=== PATIENT | female | born 1985 | race Two or more races ===

== ENCOUNTER 2019-10-10 19:13 | Inpatient (IN) | payer BC ==
[2019-10-10] MEDS ORDERED: Sodium Chloride 0.9% 10 ML Syringe FLUSH PRN (19:45)
[2019-10-10] MEDS ORDERED: Misoprostol 100 MCG Tab VAG PRN (19:45)
[2019-10-10] MEDS ORDERED: Oxytocin/Lactated Ringers 10 UNIT/1,000 ML BAG IV SCH ×2 (19:45)
[2019-10-10] MEDS ORDERED: Ondansetron 4 MG/2 ML SDV IVPUSH PRN (19:45)
[2019-10-10] MEDS ORDERED: Nalbuphine 10 MG/ML Syringe IVPUSH PRN (19:45)
--- NOTE | 2019-10-10 19:50 | PCM.LDHP ---
L&D History of Present Illness - General Date of Service: 10/10/19 Admit Problem/Dx: Patient Status Order with Admit Dx/Problem 10/10/19 19:46 Patient Status [ADT] Routine Admission Diagnosis/Problem Admission Diagnosis/Problem Gestational hypertension Source of Information: Patient History Limitations: Reports: No Limitations - History of Present Illness Introduction:: Patient is a 33 y/o at 37 0/7 wks who presents for IOL for gestational HTN. Doing well today. No new symptoms. Good FM. 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: : 2 Para: 1 LMP (Approximate): Social & Family History - Tobacco Use Smoking Status *Q: Never Smoker - Alcohol Use Alcohol Use History: No - Recreational Drug Use Recreational Drug Use: No H&P Review of Systems - Review of Systems: Review Of Systems: See Below General: Reports: No Symptoms Pulmonary: Reports: No Symptoms Cardiovascular: Reports: No Symptoms Gastrointestinal: Reports: No Symptoms Genitourinary: Reports: No Symptoms Musculoskeletal: Reports: No Symptoms Psychiatric: Reports: No Symptoms Neurological: Reports: No Symptoms L&D Exam - Exam Exam: See Below - OB Specific Contraction Intensity: Irritability Movement: Active Heart Tones: Present Heart Tones per Min: 140 Heart Rate (FHR) Variability: Moderate (6-25 bmp) Presentation: Vertex - Wills Score Wills Score Cervix Position: Posterior Wills Score Consistency: Medium Wills Score Effacement: 31-50% Wills Score Dilation: 1-2 cm Wills Score Infant's Station: -3 Wills Score Total: 3 - Exam General: Alert, Oriented, Cooperative Lungs: Clear to Auscultation, Normal Respiratory Effort Cardiovascular: Regular Rate, Regular Rhythm GI/Abdominal Exam: Soft, Non-Tender Genitourinary: Normal external exam Extremities: Normal Inspection Skin: Warm, Dry, Intact - Patient Data Result Diagrams: 10/10/19 20:50 10/10/19 20:50 - Problem List (1) 37 weeks gestation of SNOMED Code(s): 21250780 ICD Code: Z3A.37 - 37 WEEKS GESTATION OF Status: Acute Current Visit: Yes (2) Gestational hypertension SNOMED Code(s): 400857830 ICD Code: O13.9 - GESTATIONAL HTN W/O SIGNIFICANT PROTEINURIA, UNSP TRIMESTER Status: Acute Current Visit: Yes Qualifiers: Trimester: third trimester Qualified Code(s): O13.3 - Gestational [ -induced] hypertension without significant proteinuria, third trimester Problem List Initiated/Reviewed/Updated: Yes Orders Last 24hrs: Active Orders 24 hr Category Date Time Status Patient Status [ADT] Routine ADT 10/10/19 19:46 Ordered Activity as Tolerated [RC] PFP Care 10/10/19 19:46 Ordered Communication Order [RC] ASDIRECTED Care 10/10/19 19:46 Ordered Communication Order [RC] ASDIRECTED Care 10/10/19 19:46 Ordered Communication Order [RC] ASDIRECTED Care 10/10/19 19:46 Ordered Communication Order [RC] ASDIRECTED Care 10/10/19 19:46 Ordered Heart Tones [RC] ASDIRECTED Care 10/10/19 19:46 Ordered Monitoring [RC] INTERMITTENT Care 10/10/19 19:46 Ordered Non Stress Test [RC] PER UNIT ROUTINE Care 10/10/19 19:46 Ordered Notify Provider [RC] ASDIRECTED Care 10/10/19 19:46 Ordered Notify Provider [RC] PRN Care 10/10/19 19:46 Ordered Peripheral IV Care [RC] . DIRECTED Care 10/10/19 19:46 Ordered Up ad [place] [RC] ASDIRECTED Care 10/10/19 19:46 Ordered Vaginal Exam [RC] ASDIRECTED Care 10/10/19 19:46 Ordered Vital Signs [RC] ASDIRECTED Care 10/10/19 19:46 Ordered Vital Signs [RC] PER UNIT ROUTINE Care 10/10/19 19:46 Ordered Regular Diet [DIET] Diet 10/10/19 Dinner Ordered ALANINE AMINOTRANSFERASE,ALT [CHEM] Routine Lab 10/10/19 19:48 Ordered ASPARTATE AMNIOTRANSFERASE,AST [CHEM] Routine Lab 10/10/19 19:48 Ordered CBC W/O DIFF,HEMOGRAM [HEME] Routine Lab 10/10/19 19:45 Ordered CREATININE W/GFR [CHEM] Routine Lab 10/10/19 19:48 Ordered PROTEIN/CREATININE RATIO,URINE [URCHEM] Routine Lab 10/10/19 19:49 Ordered RAPID PLASMA REAGIN,RPR [CHEM] Routine Lab 10/10/19 19:46 Ordered TYPE AND SCREEN [BBK] Routine Lab 10/10/19 19:45 Ordered Lactated Ringers [Ringers, Lactated] 1,000 ml Med 10/10/19 19:45 Ordered IV ASDIRECTED Nalbuphine [Nubain] Med 10/10/19 19:45 Ordered 10 mg IVPUSH Q2H PRN Ondansetron [Zofran] Med 10/10/19 19:45 Ordered 4 mg IVPUSH Q4H PRN Oxytocin/Lactated Ringers [Pitocin in LR 10 Units/1,000 Med 10/10/19 19:45 Ordered ML] 10 unit in 1,000 ml IV .CONTINUOUS Oxytocin/Lactated Ringers [Pitocin in LR 10 Units/1,000 Med 10/10/19 19:45 Ordered ML] 10 unit in 1,000 ml IV TITRATE Sodium Chloride 0.9% [Saline Flush] Med 10/10/19 19:45 Ordered 10 ml FLUSH ASDIRECTED PRN miSOPROStoL [Cytotec] Med 10/10/19 19:45 Ordered 25 mcg VAG Q4H PRN Electronic Heart Tones Ext w TOCO [WOMSER] Oth 10/10/19 19:46 Ordered Routine Electronic Heart Tones Internal [WOMSER] Per Unit Oth 10/10/19 19:46 Ordered Routine Peripheral IV Insertion Adult [OM.PC] Routine Oth 10/10/19 19:46 Ordered Resuscitation Status Routine Resus Stat 10/10/19 19:45 Ordered Medication Orders Lactated Ringer's (Ringers, Lactated) 1,000 mls @ 40 mls/hr IV ASDIRECTED JEFF Oxytocin/Lactated Ringer's (Pitocin In Lr 10 Units/1,000 Ml) 10 unit in 1,000 mls @ 12 mls/hr IV TITRATE JEFF; Protocol Oxytocin/Lactated Ringer's (Pitocin In Lr 10 Units/1,000 Ml) 10 unit in 1,000 mls @ 500 mls/hr IV .CONTINUOUS JEFF Misoprostol (Cytotec) 25 mcg VAG Q4H PRN PRN Reason: cervical ripening Nalbuphine HCl (Nubain) 10 mg IVPUSH Q2H PRN PRN Reason: Pain Ondansetron HCl (Zofran) 4 mg IVPUSH Q4H PRN PRN Reason: Nausea/Vomiting Sodium Chloride (Saline Flush) 10 ml FLUSH ASDIRECTED PRN PRN Reason: Keep Vein Open Assessment/Plan Comment:: * Labs to be done including AST, ALT, Creatinine and urine protein/creatinine ratio * Monitor BP's closely throughout IOL * GBS negative, no need for antibiotics * Cytotec to start IOL. Will switch to pitocin/AROM when able * Pain management per patient preference * Anticipate
[2019-10-10] MEDS ORDERED: Misoprostol 25 MCG (1/4 of 100 MCG) Tab ONE (20:04)
[2019-10-11] MEDS ORDERED: Misoprostol 25 MCG (1/4 of 100 MCG) Tab ONE (00:11)
[2019-10-11] MEDS: Lactated Ringers 1,000 ML IV SCH ×2 (02:15→08:17)
[2019-10-11] MEDS ORDERED: Bupivacaine/fentaNYL/NS 100 ML Bag EPIDUR PRN (07:03)
[2019-10-11] MEDS ORDERED: ePHEDrine 50 MG/ML SDV IVPUSH PRN (07:03)
[2019-10-11] MEDS ORDERED: fentaNYL 100 MCG/2 ML SDV EPIDUR PRN (07:03)
[2019-10-11] MEDS ORDERED: diphenhydrAMINE 50 MG/ML SDV IVPUSH PRN (07:03)
--- NOTE | 2019-10-11 07:23 | PCM.PNLD ---
Labor Progress Note - VS & Meds Vital Signs: Last Vital Signs Temp 36.7 C 10/10/19 19:46 Pulse 75 10/10/19 19:46 Resp 16 10/10/19 19:46 BP 130/83 10/10/19 19:46 Pulse Ox 98 10/10/19 19:46 Active Medications: Current Medications Diphenhydramine HCl (Benadryl) 25 mg IVPUSH Q6H PRN PRN Reason: pruritis Stop: 10/13/19 23:00 Ephedrine Sulfate (Ephedrine Sulfate) 5 mg IVPUSH ASDIRECTED PRN PRN Reason: Hypotension Stop: 10/13/19 23:00 Fentanyl (Sublimaze) 100 mcg EPIDUR Q3H PRN PRN Reason: Pain Stop: 10/13/19 23:00 Fentanyl/Bupivacaine HCl (Fentanyl/Bupivacaine/Ns 2 Mcg-0.125% 100 Ml) 100 ml EPIDUR ASDIRECTED PRN PRN Reason: Pain Stop: 10/13/19 23:00 Lactated Ringer's (Ringers, Lactated) 1,000 mls @ 40 mls/hr IV ASDIRECTED JEFF Last Admin: 10/11/19 02:15 Dose: 500 mls/hr Oxytocin/Lactated Ringer's (Pitocin In Lr 10 Units/1,000 Ml) 10 unit in 1,000 mls @ 12 mls/hr IV TITRATE JEFF; Protocol Last Titration: 10/11/19 05:30 Dose: 6 munits/min, 36 mls/hr Oxytocin/Lactated Ringer's (Pitocin In Lr 10 Units/1,000 Ml) 10 unit in 1,000 mls @ 500 mls/hr IV .CONTINUOUS JEFF Misoprostol (Cytotec) 25 mcg VAG Q4H PRN PRN Reason: cervical ripening Nalbuphine HCl (Nubain) 10 mg IVPUSH Q2H PRN PRN Reason: Pain Ondansetron HCl (Zofran) 4 mg IVPUSH Q4H PRN PRN Reason: Nausea/Vomiting Sodium Chloride (Saline Flush) 10 ml FLUSH ASDIRECTED PRN PRN Reason: Keep Vein Open Discontinued Medications Misoprostol (Cytotec) Confirm Administered Dose 25 mcg .ROUTE .STK-MED ONE Stop: 10/10/19 20:05 Last Admin: 10/10/19 20:00 Dose: 25 mcg Misoprostol (Cytotec) Confirm Administered Dose 25 mcg .ROUTE .STK-MED ONE Stop: 10/11/19 00:12 Last Admin: 10/11/19 00:23 Dose: 25 mcg - Uterine Contractions Uterine Monitoring Mode: External [place] Contraction Intensity: Moderate Uterine Resting Tone: Soft - Monitoring Monitor Mode: External Ultrasound Heart Rate (FHR) Baseline: 145 Heart Rate (FHR) Variability: Moderate (6-25 bmp) Accelerations: Present, 15x15 Decelerations: None Strip Review: Category I - Vaginal Exam Dilation (cm): 3 Effacement (Percent): 50 Station: -2 Cervical Position: Midposition - Labor Progress (Free Text) Labor Progress: Doing well. Got 2 doses of Cytotec overnight. Transitioned to pitocin at 0400. Currently at 10. AROM just done with release of clear fluid.
[2019-10-11] MEDS ORDERED: Misoprostol 25 MCG (1/4 of 100 MCG) Tab VAG PRN (08:01)
--- NOTE | 2019-10-11 10:42 | PCM.PREANE ---
Preanesthetic Assessment - Procedure Proposed Procedure: Labor Epidural - Anesthesia/Transfusion/Family Hx Anesthesia History: Prior Anesthesia Without Reaction Family History of Anesthesia Reaction: No Transfusion History: No Prior Transfusion(s) - Review of Systems General: No Symptoms Pulmonary: No Symptoms Cardiovascular: Other (Gestational Hypertension) Gastrointestinal: No Symptoms Neurological: No Symptoms (Mild Scoliosis ) Other: Reports: None (Obesity BMI 43) - Physical Assessment Vital Signs: Last Vital Signs Temp 36.7 C 10/10/19 19:46 Pulse 75 10/10/19 19:46 Resp 16 10/10/19 19:46 BP 130/83 10/10/19 19:46 Pulse Ox 98 10/10/19 19:46 Height: 1.65 m Weight: 116.573 kg ASA Class: 3 Mental Status: Alert & Oriented x3 Airway Class: Mallampati = 2 Dentition: Reports: Normal Dentition Thyro-Mental Finger Breadths: 3 Mouth Opening Finger Breadths: 3 ROM/Head Extension: Full Lungs: Clear to Auscultation, Normal Respiratory Effort Cardiovascular: Regular Rate, Regular Rhythm - Lab Values: Laboratory Last Values WBC 7.72 K/mm3 (3.98-10.04) 10/10/19 20:50 RBC 4.22 M/mm3 (3.98-5.22) 10/10/19 20:50 Hgb 11.0 gm/dl (11.2-15.7) L D 10/10/19 20:50 Hct 35.2 % (34.1-44.9) 10/10/19 20:50 MCV 83.4 fl (79.4-94.8) 10/10/19 20:50 MCH 26.1 pg (25.6-32.2) 10/10/19 20:50 MCHC 31.3 g/dl (32.2-35.5) L 10/10/19 20:50 RDW Std Deviation 44.5 fL (36.4-46.3) 10/10/19 20:50 Plt Count 293 K/mm3 (182-369) 10/10/19 20:50 MPV 10.8 fl (9.4-12.3) 10/10/19 20:50 Creatinine 0.6 mg/dL (0.55-1.02) 10/10/19 20:50 Est Cr Clr Drug Dosing TNP 10/10/19 20:50 Estimated GFR (MDRD) > 60 mL/min (>60) 10/10/19 20:50 AST 12 U/L (15-37) L 10/10/19 20:50 ALT 13 U/L (14-59) L 10/10/19 20:50 Ur Random Creatinine 67.3 mg/dL (30.0-125.0) 10/10/19 22:00 U Random Total Protein 10.9 mg/dL (0.0-11.8) 10/10/19 22:00 Protein/Creatinin Ratio 162.0 mg/g (0-149) H 10/10/19 22:00 RPR Non-reactive (NONREACTIVE) 10/10/19 20:50 Blood Type O POSITIVE 10/10/19 20:50 Gel Antibody Screen Negative 10/10/19 20:50 - Allergies Allergies/Adverse Reactions: Allergies Allergy/AdvReac Type Severity Reaction Status Date / Time No Known Allergies Allergy Verified 10/10/19 22:29 - Acknowledgements Anesthesia Type Planned: Epidural Pt an Appropriate Candidate for the Planned Anesthesia: Yes Alternatives and Risks of Anesthesia Discussed w Pt/Guardian: Yes Pt/Guardian Understands and Agrees with Anesthesia Plan: Yes PreAnesthesia Questionnaire - Past Health History Medical/Surgical History: Denies 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 Smoking Status *Q: Never Smoker Second Hand Smoke Exposure: No Recreational Drug Use History: No - HOME MEDS Home Medications: Home Meds Prenat 115/Iron Fum/Folic/Dss [ 19 Tablet] 1 tab PO DAILY 10/10/19 [ History] - CURRENT (IN HOUSE) MEDS Current Meds: Current Medications Diphenhydramine HCl (Benadryl) 25 mg IVPUSH Q6H PRN PRN Reason: pruritis Stop: 10/13/19 23:00 Ephedrine Sulfate (Ephedrine Sulfate) 5 mg IVPUSH ASDIRECTED PRN PRN Reason: Hypotension Stop: 10/13/19 23:00 Fentanyl (Sublimaze) 100 mcg EPIDUR Q3H PRN PRN Reason: Pain Stop: 10/13/19 23:00 Last Admin: 10/11/19 09:54 Dose: 100 mcg Fentanyl/Bupivacaine HCl (Fentanyl/Bupivacaine/Ns 2 Mcg-0.125% 100 Ml) 100 ml EPIDUR ASDIRECTED PRN PRN Reason: Pain Stop: 10/13/19 23:00 Last Admin: 10/11/19 10:02 Dose: 100 ml Lactated Ringer's (Ringers, Lactated) 1,000 mls @ 40 mls/hr IV ASDIRECTED JEFF Last Admin: 10/11/19 08:17 Dose: 500 mls/hr Oxytocin/Lactated Ringer's (Pitocin In Lr 10 Units/1,000 Ml) 10 unit in 1,000 mls @ 12 mls/hr IV TITRATE JEFF; Protocol Last Titration: 10/11/19 08:15 Dose: 8 munits/min, 48 mls/hr Oxytocin/Lactated Ringer's (Pitocin In Lr 10 Units/1,000 Ml) 10 unit in 1,000 mls @ 500 mls/hr IV .CONTINUOUS JEFF Misoprostol (Cytotec) 25 mcg VAG Q4H PRN PRN Reason: cervical ripening Nalbuphine HCl (Nubain) 10 mg IVPUSH Q2H PRN PRN Reason: Pain Last Admin: 10/11/19 09:46 Dose: 10 mg Ondansetron HCl (Zofran) 4 mg IVPUSH Q4H PRN PRN Reason: Nausea/Vomiting Sodium Chloride (Saline Flush) 10 ml FLUSH ASDIRECTED PRN PRN Reason: Keep Vein Open Discontinued Medications Misoprostol (Cytotec) 25 mcg VAG Q4H PRN PRN Reason: cervical ripening Misoprostol (Cytotec) Confirm Administered Dose 25 mcg .ROUTE .STWebPT-MED ONE Stop: 10/10/19 20:05 Last Admin: 10/10/19 20:00 Dose: 25 mcg Misoprostol (Cytotec) Confirm Administered Dose 25 mcg .ROUTE .STK-MED ONE Stop: 10/11/19 00:12 Last Admin: 10/11/19 00:23 Dose: 25 mcg
--- NOTE | 2019-10-11 12:37 | PCM.DEL ---
L & D Note - General Info Date of Service: 10/11/19 - Delivery Note Labor: Induced by ARM, Induced by Oxytocin Cervical Ripening Method: Misoprostil Delivery Outcome: Livebirth Infant Delivery Method: Spontaneous Vaginal Delivery-Single Infant Delivery Mode: Spontaneous Presentation: Right Occiput Anterior (QUINN) Nuchal Cord: Present Anesthesia Type: Epidural Amniotic Fluid Description: Clear Episiotomy Type: None Laceration: None Placenta: Intact, Spontaneous Cord: 3 Vessels Estimated Blood Loss: 100 Resuscitation Needed: Yes [place]: Bulb Syringe, Stimulated, Warmed, [place] Used, Warmer Used Delivery Comments (Free Text/Narrative):: Patient found to be complete and began pushing. With maternal pushing effort head delivered from QUINN presentation. Nuchal cord present, but baby quickly delivered and so not reduced. With gentle traction shoulders and body delivered. Infant placed on maternal abdomen. Cord clamped and cut. Cord blood obtained. Placenta allowed time to separate and expelled intact. Inspection of perineum showed no lacerations - General Info Date of Service: 10/11/19 - Patient Data Vitals - Most Recent: Last Vital Signs Temp 36.7 C 10/10/19 19:46 Pulse 75 10/10/19 19:46 Resp 16 10/10/19 19:46 BP 130/83 10/10/19 19:46 Pulse Ox 98 10/10/19 19:46 Weight - Most Recent: 116.573 kg I&O - Last 24 Hours: Intake & Output 10/10/19 10/11/19 10/11/19 22:59 06:59 14:59 Intake Total 1000 Balance 1000 Lab Results Last 24 Hours: Laboratory Results - last 24 hr 10/10/19 10/10/19 10/10/19 Range/Units 20:50 20:50 20:50 WBC 7.72 (3.98-10.04) K/mm3 RBC 4.22 (3.98-5.22) M/mm3 Hgb 11.0 L D (11.2-15.7) gm/dl Hct 35.2 (34.1-44.9) % MCV 83.4 (79.4-94.8) fl MCH 26.1 (25.6-32.2) pg MCHC 31.3 L (32.2-35.5) g/dl RDW Std Deviation 44.5 (36.4-46.3) fL Plt Count 293 (182-369) K/mm3 MPV 10.8 (9.4-12.3) fl Creatinine (0.55-1.02) mg/dL Est Cr Clr Drug Dosing Estimated GFR (MDRD) (>60) mL/min AST (15-37) U/L ALT (14-59) U/L Ur Random Creatinine (30.0-125.0) mg/dL U Random Total Protein (0.0-11.8) mg/dL Protein/Creatinin Ratio (0-149) mg/g RPR Non-reactive (NONREACTIVE) Blood Type O POSITIVE Gel Antibody Screen Negative 10/10/19 10/10/19 Range/Units 20:50 22:00 WBC (3.98-10.04) K/mm3 RBC (3.98-5.22) M/mm3 Hgb (11.2-15.7) gm/dl Hct (34.1-44.9) % MCV (79.4-94.8) fl MCH (25.6-32.2) pg MCHC (32.2-35.5) g/dl RDW Std Deviation (36.4-46.3) fL Plt Count (182-369) K/mm3 MPV (9.4-12.3) fl Creatinine 0.6 (0.55-1.02) mg/dL Est Cr Clr Drug Dosing TNP Estimated GFR (MDRD) > 60 (>60) mL/min AST 12 L (15-37) U/L ALT 13 L (14-59) U/L Ur Random Creatinine 67.3 (30.0-125.0) mg/dL U Random Total Protein 10.9 (0.0-11.8) mg/dL Protein/Creatinin Ratio 162.0 H (0-149) mg/g RPR (NONREACTIVE) Blood Type Gel Antibody Screen Med Orders - Current: Current Medications Diphenhydramine HCl (Benadryl) 25 mg IVPUSH Q6H PRN PRN Reason: pruritis Stop: 10/13/19 23:00 Ephedrine Sulfate (Ephedrine Sulfate) 5 mg IVPUSH ASDIRECTED PRN PRN Reason: Hypotension Stop: 10/13/19 23:00 Fentanyl (Sublimaze) 100 mcg EPIDUR Q3H PRN PRN Reason: Pain Stop: 10/13/19 23:00 Last Admin: 10/11/19 09:54 Dose: 100 mcg Fentanyl/Bupivacaine HCl (Fentanyl/Bupivacaine/Ns 2 Mcg-0.125% 100 Ml) 100 ml EPIDUR ASDIRECTED PRN PRN Reason: Pain Stop: 10/13/19 23:00 Last Admin: 10/11/19 10:02 Dose: 100 ml Lactated Ringer's (Ringers, Lactated) 1,000 mls @ 40 mls/hr IV ASDIRECTED JEFF Last Admin: 10/11/19 08:17 Dose: 500 mls/hr Oxytocin/Lactated Ringer's (Pitocin In Lr 10 Units/1,000 Ml) 10 unit in 1,000 mls @ 12 mls/hr IV TITRATE JEFF; Protocol Last Titration: 10/11/19 08:15 Dose: 8 munits/min, 48 mls/hr Oxytocin/Lactated Ringer's (Pitocin In Lr 10 Units/1,000 Ml) 10 unit in 1,000 mls @ 500 mls/hr IV .CONTINUOUS JEFF Misoprostol (Cytotec) 25 mcg VAG Q4H PRN PRN Reason: cervical ripening Nalbuphine HCl (Nubain) 10 mg IVPUSH Q2H PRN PRN Reason: Pain Last Admin: 10/11/19 09:46 Dose: 10 mg Ondansetron HCl (Zofran) 4 mg IVPUSH Q4H PRN PRN Reason: Nausea/Vomiting Sodium Chloride (Saline Flush) 10 ml FLUSH ASDIRECTED PRN PRN Reason: Keep Vein Open Discontinued Medications Misoprostol (Cytotec) 25 mcg VAG Q4H PRN PRN Reason: cervical ripening Misoprostol (Cytotec) Confirm Administered Dose 25 mcg .ROUTE .STK-MED ONE Stop: 10/10/19 20:05 Last Admin: 10/10/19 20:00 Dose: 25 mcg Misoprostol (Cytotec) Confirm Administered Dose 25 mcg .ROUTE .STK-MED ONE Stop: 10/11/19 00:12 Last Admin: 10/11/19 00:23 Dose: 25 mcg - Problem List & Annotations (1) 37 weeks gestation of SNOMED Code(s): 46061464 Code(s): Z3A.37 - 37 WEEKS GESTATION OF Status: Acute Current Visit: Yes (2) Gestational hypertension SNOMED Code(s): 682225882 Code(s): O13.9 - GESTATIONAL HTN W/O SIGNIFICANT PROTEINURIA, UNSP TRIMESTER Status: Acute Current Visit: Yes Qualifiers: Trimester: third trimester Qualified Code(s): O13.3 - Gestational [ -induced] hypertension without significant proteinuria, third trimester (3) Vaginal delivery SNOMED Code(s): 889695911 Code(s): O80 - ENCOUNTER FOR FULL-TERM UNCOMPLICATED DELIVERY Status: Acute Current Visit: Yes - Problem List Review Problem List Initiated/Reviewed/Updated: Yes - My Orders Last 24 Hours: My Active Orders 10/10/19 19:45 Lactated Ringers [Ringers, Lactated] 1,000 ml IV ASDIRECTED Nalbuphine [Nubain] 10 mg IVPUSH Q2H PRN Ondansetron [Zofran] 4 mg IVPUSH Q4H PRN Oxytocin/Lactated Ringers [Pitocin in LR 10 Units/1,000 ML] 10 unit in 1,000 ml IV .CONTINUOUS Oxytocin/Lactated Ringers [Pitocin in LR 10 Units/1,000 ML] 10 unit in 1,000 ml IV TITRATE Sodium Chloride 0.9% [Saline Flush] 10 ml FLUSH ASDIRECTED PRN Resuscitation Status Routine 10/10/19 19:46 Patient Status [ADT] Routine Activity as Tolerated [RC] PFP Communication Order [RC] ASDIRECTED Communication Order [RC] ASDIRECTED Communication Order [RC] ASDIRECTED Communication Order [RC] ASDIRECTED Heart Tones [RC] ASDIRECTED Monitoring [RC] INTERMITTENT Non Stress Test [RC] PER UNIT ROUTINE Notify Provider [RC] ASDIRECTED Notify Provider [RC] PRN Peripheral IV Care [RC] . DIRECTED Up ad [place] [RC] ASDIRECTED Vaginal Exam [RC] ASDIRECTED Vital Signs [RC] ASDIRECTED Vital Signs [RC] PER UNIT ROUTINE Electronic Heart Tones Ext w TOCO [WOMSER] Routine Electronic Heart Tones Internal [WOMSER] Per Unit Routine Peripheral IV Insertion Adult [OM.PC] Routine 10/10/19 Dinner Regular Diet [DIET] 10/11/19 08:01 miSOPROStoL [Cytotec] 25 mcg VAG Q4H PRN 10/11/19 11:34 Urinary Catheter Assessment [RC] ASDIRECTED - Assessment Assessment:: PPD#0 - Plan Plan:: * Continue to monitor BP's closely * Bottle feeding * Discharge home in 1-2 days
[2019-10-11] MEDS ORDERED: Ibuprofen 600 MG Tab PO PRN (14:02)
[2019-10-11] MEDS ORDERED: Docusate Sodium 100 MG Cap PO PRN (14:02)
[2019-10-11] MEDS ORDERED: Acetaminophen 325 MG Tab PO PRN (14:02)
[2019-10-11] MEDS ORDERED: Witch Hazel Medicated Pads 40/Jar TOP PRN (15:23)
[2019-10-12] MEDS ORDERED: Bupivacaine 0.25% 10 ML SDV ONE
--- NOTE | 2019-10-12 07:02 | PCM.PNPP ---
- General Info Date of Service: 10/12/19 Functional Status: Reports: Pain Controlled, Tolerating Diet, Ambulating, Urinating - Review of Systems General: Reports: No Symptoms Pulmonary: Reports: No Symptoms Cardiovascular: Reports: No Symptoms Gastrointestinal: Reports: No Symptoms Genitourinary: Reports: No Symptoms Musculoskeletal: Reports: No Symptoms Neurological: Reports: No Symptoms - Patient Data Vital Signs - Most Recent: Last Vital Signs Temp 36.7 C 10/12/19 02:00 Pulse 57 L 10/12/19 01:58 Resp 14 10/12/19 02:00 BP 143/79 H 10/12/19 01:58 Pulse Ox 95 10/12/19 01:58 Weight - Most Recent: 116.573 kg Med Orders - Current: Current Medications Acetaminophen (Tylenol) 650 mg PO Q4H PRN PRN Reason: mild pain or fever Docusate Sodium (Colace) 100 mg PO BID PRN PRN Reason: Constipation Ibuprofen (Motrin) 600 mg PO Q6H PRN PRN Reason: Mild pain or fever Last Admin: 10/12/19 01:59 Dose: 600 mg Witch Sarah (Tucks) 1 pad TOP ASDIRECTED PRN PRN Reason: Pain Last Admin: 10/11/19 15:28 Dose: 1 tub Discontinued Medications Diphenhydramine HCl (Benadryl) 25 mg IVPUSH Q6H PRN PRN Reason: pruritis Stop: 10/13/19 23:00 Ephedrine Sulfate (Ephedrine Sulfate) 5 mg IVPUSH ASDIRECTED PRN PRN Reason: Hypotension Stop: 10/13/19 23:00 Fentanyl (Sublimaze) 100 mcg EPIDUR Q3H PRN PRN Reason: Pain Stop: 10/13/19 23:00 Last Admin: 10/11/19 09:54 Dose: 100 mcg Fentanyl/Bupivacaine HCl (Fentanyl/Bupivacaine/Ns 2 Mcg-0.125% 100 Ml) 100 ml EPIDUR ASDIRECTED PRN PRN Reason: Pain Stop: 10/13/19 23:00 Last Admin: 10/11/19 10:02 Dose: 100 ml Lactated Ringer's (Ringers, Lactated) 1,000 mls @ 40 mls/hr IV ASDIRECTED JEFF Last Admin: 10/11/19 08:17 Dose: 500 mls/hr Oxytocin/Lactated Ringer's (Pitocin In Lr 10 Units/1,000 Ml) 10 unit in 1,000 mls @ 12 mls/hr IV TITRATE JEFF; Protocol Last Titration: 10/11/19 13:00 Dose: 250 mls/hr Oxytocin/Lactated Ringer's (Pitocin In Lr 10 Units/1,000 Ml) 10 unit in 1,000 mls @ 500 mls/hr IV .CONTINUOUS JEFF Misoprostol (Cytotec) 25 mcg VAG Q4H PRN PRN Reason: cervical ripening Misoprostol (Cytotec) Confirm Administered Dose 25 mcg .ROUTE .STK-MED ONE Stop: 10/10/19 20:05 Last Admin: 10/10/19 20:00 Dose: 25 mcg Misoprostol (Cytotec) Confirm Administered Dose 25 mcg .ROUTE .STK-MED ONE Stop: 10/11/19 00:12 Last Admin: 10/11/19 00:23 Dose: 25 mcg Misoprostol (Cytotec) 25 mcg VAG Q4H PRN PRN Reason: cervical ripening Nalbuphine HCl (Nubain) 10 mg IVPUSH Q2H PRN PRN Reason: Pain Last Admin: 10/11/19 09:46 Dose: 10 mg Ondansetron HCl (Zofran) 4 mg IVPUSH Q4H PRN PRN Reason: Nausea/Vomiting Sodium Chloride (Saline Flush) 10 ml FLUSH ASDIRECTED PRN PRN Reason: Keep Vein Open - Infant Interaction Disposition, : in Room with Family Infant Interaction: Holding Infant Infant Feeding: Bottle Fed Infant Support Person: Significant Other - Recovery Exam Fundal Tone: Firm Fundal Level: 1 Fingerbreadths Below Umbilicus Lochia Amount: Small Lochia Color: Rubra/Red Perineum Description: Intact, Minimal Bruising/Swelling Episiotomy/Laceration: None Bladder Status: Voiding Urinary Elimination: Voided - Exam General: Alert, Oriented, Cooperative GI/Abdominal Exam: Soft, Non-Tender Extremities: Normal Inspection Skin: Warm, Dry, Intact - Problem List & Annotations (1) 37 weeks gestation of SNOMED Code(s): 98807480 Code(s): Z3A.37 - 37 WEEKS GESTATION OF Status: Acute Current Visit: Yes (2) Gestational hypertension SNOMED Code(s): 724085817 Code(s): O13.9 - GESTATIONAL HTN W/O SIGNIFICANT PROTEINURIA, UNSP TRIMESTER Status: Acute Current Visit: Yes Qualifiers: Trimester: third trimester Qualified Code(s): O13.3 - Gestational [ -induced] hypertension without significant proteinuria, third trimester (3) Vaginal delivery SNOMED Code(s): 265981654 Code(s): O80 - ENCOUNTER FOR FULL-TERM UNCOMPLICATED DELIVERY Status: Acute Current Visit: Yes - Problem List Review Problem List Initiated/Reviewed/Updated: Yes - My Orders Last 24 Hours: My Active Orders 10/11/19 14:02 Activity as Tolerated [RC] PER UNIT ROUTINE Vital Signs [RC] 09,15,21,03 Acetaminophen [Tylenol] 650 mg PO Q4H PRN Docusate Sodium [Colace] 100 mg PO BID PRN Ibuprofen [Motrin] 600 mg PO Q6H PRN Assess Lochia [WOMSER] Per Unit Routine Assess Uterine Involution [WOMSER] Per Unit Routine Breast Pump [WOMSER] Per Unit Routine Heat Therapy [OM.PC] PRN Ice Therapy [OM.PC] Per Unit Routine Perineal Care [OM.PC] Per Unit Routine Peripheral IV Discontinue [OM.PC] Routine Sitz Bath [OM.PC] Per Unit Routine 10/11/19 15:23 witch Sarah [Tucks] 1 pad TOP ASDIRECTED PRN 10/11/19 Lunch Regular Diet [DIET] 10/12/19 07:02 Ready for Discharge [RC] PER UNIT ROUTINE 10/12/19 14:02 Heat Therapy [OM.PC] PRN - Assessment Assessment:: PPD#1 - Plan Plan:: * Continue to monitor BP's closely * Bottle feeding * Discharge home today
--- NOTE | 2019-10-12 07:03 | PCM.DCSUM1 ---
Discharge Summary - Discharge Data Discharge Date: 10/12/19 Discharge Disposition: Home, Self-Care 01 Condition: Good - Referral to Home Health Primary Care Physician: Radha Menjivar MD - Discharge Diagnosis/Problem(s) (1) 37 weeks gestation of SNOMED Code(s): 87400164 ICD Code: Z3A.37 - 37 WEEKS GESTATION OF Status: Acute Current Visit: Yes (2) Gestational hypertension SNOMED Code(s): 169386379 ICD Code: O13.9 - GESTATIONAL HTN W/O SIGNIFICANT PROTEINURIA, UNSP TRIMESTER Status: Acute Current Visit: Yes Qualifiers: Trimester: third trimester Qualified Code(s): O13.3 - Gestational [ -induced] hypertension without significant proteinuria, third trimester (3) Vaginal delivery SNOMED Code(s): 974500802 ICD Code: O80 - ENCOUNTER FOR FULL-TERM UNCOMPLICATED DELIVERY Status: Acute Current Visit: Yes - Patient Summary/Data Complications: None Consults: None Recommended Follow-up Testing/Procedures: Follow up in 1 week for BP check, 3 weeks for check Hospital Course: 33 y/o at 37 wks who presents for IOL for gestational HTN. IOL done with cytotec then Pitocin/AROM. Progressed well to complete dilation and underwent an uncomplicated . See delivery note. she did well with BP's in normal to mild range and was discharged home on PPD#1 - Patient Instructions Diet: Regular Diet as Tolerated Activity: As Tolerated Activity, Other: Pelvic rest for 6 weeks Driving: May Drive Today Showering/Bathing: May Shower Showering/Bathing, Other: May Bathe Notify Provider of: Fever, Increased Pain, Swelling and Redness, Drainage, Nausea and/or Vomiting - Discharge Plan *PRESCRIPTION DRUG MONITORING PROGRAM REVIEWED*: No *COPY OF PRESCRIPTION DRUG MONITORING REPORT IN PATIENT YANCY: No Home Medications: Home Meds Prenat 115/Iron Fum/Folic/Dss [ 19 Tablet] 1 tab PO DAILY 10/10/19 [ History] Docusate Sodium [Colace] 100 mg PO BID PRN cap 10/11/19 [Rx] Ibuprofen [Motrin] 600 mg PO Q6H PRN tablet 10/11/19 [Rx] Referrals: Radha Menjivar MD [Primary Care Provider] - (1 week RN only BP check 3 weeks check - can be telehealth) - Discharge Summary/Plan Comment DC Time >30 min.: No - Patient Data Vitals - Most Recent: Last Vital Signs Temp 36.7 C 10/12/19 02:00 Pulse 57 L 10/12/19 01:58 Resp 14 10/12/19 02:00 BP 143/79 H 10/12/19 01:58 Pulse Ox 95 10/12/19 01:58 Weight - Most Recent: 116.573 kg Med Orders - Current: Current Medications Acetaminophen (Tylenol) 650 mg PO Q4H PRN PRN Reason: mild pain or fever Docusate Sodium (Colace) 100 mg PO BID PRN PRN Reason: Constipation Ibuprofen (Motrin) 600 mg PO Q6H PRN PRN Reason: Mild pain or fever Last Admin: 10/12/19 01:59 Dose: 600 mg Witch Joyce (Tucks) 1 pad TOP ASDIRECTED PRN PRN Reason: Pain Last Admin: 10/11/19 15:28 Dose: 1 tub Discontinued Medications Diphenhydramine HCl (Benadryl) 25 mg IVPUSH Q6H PRN PRN Reason: pruritis Stop: 10/13/19 23:00 Ephedrine Sulfate (Ephedrine Sulfate) 5 mg IVPUSH ASDIRECTED PRN PRN Reason: Hypotension Stop: 10/13/19 23:00 Fentanyl (Sublimaze) 100 mcg EPIDUR Q3H PRN PRN Reason: Pain Stop: 10/13/19 23:00 Last Admin: 10/11/19 09:54 Dose: 100 mcg Fentanyl/Bupivacaine HCl (Fentanyl/Bupivacaine/Ns 2 Mcg-0.125% 100 Ml) 100 ml EPIDUR ASDIRECTED PRN PRN Reason: Pain Stop: 10/13/19 23:00 Last Admin: 10/11/19 10:02 Dose: 100 ml Lactated Ringer's (Ringers, Lactated) 1,000 mls @ 40 mls/hr IV ASDIRECTED JEFF Last Admin: 10/11/19 08:17 Dose: 500 mls/hr Oxytocin/Lactated Ringer's (Pitocin In Lr 10 Units/1,000 Ml) 10 unit in 1,000 mls @ 12 mls/hr IV TITRATE JEFF; Protocol Last Titration: 10/11/19 13:00 Dose: 250 mls/hr Oxytocin/Lactated Ringer's (Pitocin In Lr 10 Units/1,000 Ml) 10 unit in 1,000 mls @ 500 mls/hr IV .CONTINUOUS JEFF Misoprostol (Cytotec) 25 mcg VAG Q4H PRN PRN Reason: cervical ripening Misoprostol (Cytotec) Confirm Administered Dose 25 mcg .ROUTE .[employer] ONE Stop: 10/10/19 20:05 Last Admin: 10/10/19 20:00 Dose: 25 mcg Misoprostol (Cytotec) Confirm Administered Dose 25 mcg .ROUTE .[employer] ONE Stop: 10/11/19 00:12 Last Admin: 10/11/19 00:23 Dose: 25 mcg Misoprostol (Cytotec) 25 mcg VAG Q4H PRN PRN Reason: cervical ripening Nalbuphine HCl (Nubain) 10 mg IVPUSH Q2H PRN PRN Reason: Pain Last Admin: 10/11/19 09:46 Dose: 10 mg Ondansetron HCl (Zofran) 4 mg IVPUSH Q4H PRN PRN Reason: Nausea/Vomiting Sodium Chloride (Saline Flush) 10 ml FLUSH ASDIRECTED PRN PRN Reason: Keep Vein Open
--- NOTE | 2019-10-12 13:49 | PCM48HPAN ---
Post Anesthesia Note - EVALUATION WITHIN 48HRS OF ANESTHETIC Vital Signs in Normal Range: Yes Patient Participated in Evaluation: Yes Respiratory Function Stable: Yes Airway Patent: Yes Cardiovascular Function Stable: Yes Hydration Status Stable: Yes Pain Control Satisfactory: Yes Nausea and Vomiting Control Satisfactory: Yes Mental Status Recovered: Yes Vital Signs: Last Vital Signs Temp 36.7 C 10/12/19 09:13 Pulse 64 10/12/19 09:13 Resp 16 10/12/19 09:13 BP 140/77 10/12/19 09:13 Pulse Ox 99 10/12/19 09:13
== END 2019-10-12 13:40 | disposition home or self-care (01) | DRG 560 ==
LOC: UNDOADMOB 19:13 → JD.OB 19:13 → INTOOBSV 10-11 12:38 → JD.OB 10-11 12:38 → OBSVTOIN 10-11 12:38 → JD.OB 10-11 13:57
PROVIDERS: ADMIT Obstetrics & Gynecology; ATTEND Obstetrics & Gynecology
PROC: 10907ZC Drainage of Amniotic Fluid, Therapeutic from Products of Conception, Via Natural or Artificial Opening (ICD-10-PCS; principal; 2019-10-11)
PROC: 3E0P7VZ Introduction of Hormone into Female Reproductive, Via Natural or Artificial Opening (ICD-10-PCS; 2019-10-11)
PROC: 10E0XZZ Delivery of Products of Conception, External Approach (ICD-10-PCS; 2019-10-11)
PROC: 3E0R3BZ Introduction of Anesthetic Agent into Spinal Canal, Percutaneous Approach (ICD-10-PCS; 2019-10-11)
DX: O13.4 Gestational [pregnancy-induced] hypertension without significant proteinuria, complicating childbirth (principal); Z3A.37 37 weeks gestation of pregnancy; Z37.0 Single live birth; O69.81X0 Labor and delivery complicated by cord around neck, without compression, not applicable or unspecified
CPT/HCPCS: 36415; 51702; 59025; 59200; 59409; 82565; 82570; 84156; 84450; 84460; 85027; 86592; 86850; 86900; 86901; A9270-GY; J2300; J2590; J3010; J3490; J7120

== ENCOUNTER 2022-09-01 07:38 | Day surgery (SDC) | payer BC ==
[~2022-09-01 07:38] MED LIST: Lactated Ringers 1,000 ML IV SCH; Lidocaine 1% 50 ML MDV ONE; Lidocaine 1%/Sod Bicarbonate in NS 8.4% 1 ML Syringe IDERM PRN; Sodium Chloride 0.9% 10 ML Syringe FLUSH PRN; Sodium Chloride 0.9% 10 ML Syringe FLUSH SCH
[2022-09-01] MEDS ORDERED: Midazolam 1 MG/ML 2 ML SDV ONE (07:42)
[2022-09-01] MEDS ORDERED: Lidocaine 1% 8 ML ONE (07:42)
[2022-09-01] MEDS ORDERED: fentaNYL 100 MCG/2 ML SDV ONE (07:42)
[2022-09-01] MEDS ORDERED: Propofol 200 MG/20 ML SDV ONE (07:42)
[2022-09-01] MEDS ORDERED: Ondansetron 4 MG/2 ML SDV ONE (07:50)
[2022-09-01] MEDS ORDERED: Succinylcholine 200 MG/10 ML MDV ONE (07:50)
[2022-09-01] MEDS ORDERED: Dexamethasone 4 MG/ML 5 ML MDV ONE (07:50)
[2022-09-01] MEDS ORDERED: Rocuronium 50 MG/5 ML Vial ONE (08:41)
[2022-09-01] MEDS ORDERED: ceFAZolin 2 GM Vial ONE (08:42)
[2022-09-01] MEDS ORDERED: Tranexamic Acid 1,000 MG/10 ML Vial ONE (09:04)
[2022-09-01] MEDS ORDERED: Methylergonovine 0.2 MG/1 ML Amp ONE (09:06)
[2022-09-01] MEDS ORDERED: Lactated Ringers 1,000 ML ONE (09:12)
[2022-09-01] MEDS ORDERED: HYDROmorphone 0.5 MG/0.5 ML Syringe IVPUSH PRN (09:16)
[2022-09-01] MEDS ORDERED: fentaNYL 100 MCG/2 ML SDV IVPUSH PRN (09:16)
[2022-09-01] MEDS ORDERED: Prochlorperazine 10 MG/2 ML SDV IVPUSH PRN (09:17)
[2022-09-01] MEDS ORDERED: Ketorolac 30 MG/ML SDV ONE (09:21)
[2022-09-01] MEDS ORDERED: Neostigmine Methylsulfate 10 MG/10 ML MDV ONE (09:49)
[2022-09-01] MEDS ORDERED: Oxytocin 10 Units/1 ML SDV ONE (11:23)
== END 2022-09-01 11:45 | disposition home or self-care (01) ==
LOC: JD.SDS 07:38
PROVIDERS: ATTEND Obstetrics & Gynecology
DX: O01.0 Classical hydatidiform mole (principal); O13.3 Gestational [pregnancy-induced] hypertension without significant proteinuria, third trimester; Z79.899 Other long term (current) drug therapy; Z98.890 Other specified postprocedural states
CPT/HCPCS: 36415; 59821; 80053; 84702; 85025; 86850; 86900; 86901; J0330; J0690; J1100; J1885; J2001; J2210; J2250; J2405; J2590; J2704; J2710; J3010; J7120; 01965; J3490